=== PATIENT | female | born 1970 | race Caucasian/White ===

== ENCOUNTER 2022-03-25 10:10 | Day surgery (SDC) | payer OTHER ==
[~2022-03-25] VITALS: Ht 167.6 cm; Wt 92.1 kg
[2022-03-25 10:43] LABS: HCG,QUAL RESULT NEGATIVE (NEGATIVE)
[2022-03-25] MEDS: fentaNYL CITRATE/PF 100 MCG/2 ML AMP ONE ×5 (12:03→12:37)
[2022-03-25] MEDS: MIDAZOLAM HCL 5 MG/5 ML VIAL ONE ×4 (12:03→12:26)
[2022-03-25] MEDS ORDERED: MIDAZOLAM HCL 5 MG/5 ML VIAL ONE (12:27)
[2022-03-25 16:19] VITALS: BP_SYST 147
== END 2022-03-25 14:05 | disposition home or self-care (01) ==
LOC: SDS 10:10 → SMU 10:13 → SDS 14:05
PROVIDERS: ATTEND Surgery
DX: Z12.11 Encounter for screening for malignant neoplasm of colon (principal); K64.8 Other hemorrhoids; K64.9 Unspecified hemorrhoids; I10 Essential (primary) hypertension; E66.01 Morbid (severe) obesity due to excess calories; Z90.710 Acquired absence of both cervix and uterus; Z20.822 Contact with and (suspected) exposure to COVID-19; Z79.899 Other long term (current) drug therapy
CPT/HCPCS: 36415; 45378; 84703; 99152; 99153; U0003; G0378; J2250; J3010